=== PATIENT | male | born 1990 | race Caucasian/White ===

== ENCOUNTER 2022-02-10 17:02 | Emergency (ER) | payer OTHER, SELFPAY ==
[2022-02-10 17:13] VITALS: BP 138/76; PULSE 69; RESP 12; TEMP 37.1; O2SAT 100
--- NOTE | 2022-02-10 17:17 | ED.GENADULT ---
HPI - General Adult General Chief complaint: Extremity Injury, Lower Stated complaint: judy removed Time Seen by Provider: 02/10/22 17:17 Source: patient, RN notes reviewed and old records reviewed Mode of arrival: ambulatory Limitations: no limitations History of Present Illness HPI narrative: 31 year old male presents to express care with complaints of having injury to tissue below right knee which he had 3 judy placed in wound which got cut on a pool, reports judy placed in ER not in area. Patient reports that it is time for judy to be removed. Patient reports no noted drainage from wound area, no acute pain or any redness of wound site. MD complaint: staple removal from below right knee Related Data Home Medications Medication Instructions Recorded Confirmed No Home Medications 09/04/19 02/10/22 Allergies Allergy/AdvReac Type Severity Reaction Status Date / Time No Known Allergies Allergy Mild Verified 02/10/22 17:12 Review of Systems Review of Systems: CONSTITUTIONAL: Denies fever, chills, or sweats. EYES: Denies visual changes, redness, or discharge. ENT: Denies rhinorrhea, congestion, sore throat, or otalgia. CARDIOVASCULAR: Denies chest pain, palpitations, or edema. RESPIRATORY: Denies cough or dyspnea. GASTROINTESTINAL: Denies abdominal pain, nausea, vomiting, or diarrhea. GENITOURINARY: Denies dysuria or hematuria. SKIN: Denies rash or itching.healing wound below right knee area MUSCULOSKELETAL: Denies back pain, joint pain, or myalgia. NEUROLOGIC: Denies headache, numbness, or weakness. PSYCHIATRIC: Denies anxiety or depression. All systems reviewed & are unremarkable except as noted in HPI and below PMFSH Past Medical History Medical History No active medical problems Surgical History Surgical History History of removal of cyst right wrist Volar ganglion [address] Carlisle Family History Family History Mother Colon polyp Father Hypertension Social History Social History Smoking status: Never smoker Alcohol intake: current Drinks per week: 1 Additional living arrangements comments: and 10 mo old daughter Additional occupation/education comments: [employer] Gender identity (if verbalized by the patient): Male Comments At time of signature, agree with nursing past medical, surgical, social and family history. There is no relevant family history pertinent to the presenting complaint Exam Narrative: GENERAL: Well-appearing, well-nourished, and in no acute distress. HEAD: Normocephalic, atraumatic. EYES: PERRLA and EOMI. ENT: Nares clear, no rhinorrhea or epistaxis. Mucous membranes moist.TM's normal with good light reflex, throat pink no lesions exudates or tonsils swelling NECK: Supple. no lymphadenopathy CHEST: Clear to auscultation. No respiratory distress.[id number] % on room HEART: Regular rate and rhythm. No murmur heard. Normal peripheral pulses. ABDOMEN: Soft, nontender, nondistended, normal active bowel sounds. EXTREMITIES: Normal range of motion. No edema. SKIN: Warm, dry, no rash. wound healing to tissue below right knee which measures approximately 2cm, judy removed with no gaping of wound edges, NEURO: No focal deficits. Alert and oriented x3. Course Course Level of Care: Express Care Visit Vital Signs Vital signs: Vital Signs Temperature 37.1 C 02/10/22 17:13 Pulse Rate 69 02/10/22 17:13 Respiratory Rate 02/10/22 17:13 Blood Pressure 138/76 02/10/22 17:13 Pulse Oximetry 100 02/10/22 17:13 Oxygen Delivery Room Air 02/10/22 17:13 Temperature 37.1 C 02/10/22 17:13 Pulse Rate 69 02/10/22 17:13 Respiratory Rate 12 02/10/22 17:13 Blood Pressure 138/76 02/10/22 17:13 Pulse Oximetry 100 02/10
== END 2022-02-10 17:35 | disposition home or self-care (01) ==
PROVIDERS: Emergency Provider Registered Nurse; PCP Internal Medicine
DX: S81.011D Laceration without foreign body, right knee, subsequent encounter (principal); W45.8XXD Other foreign body or object entering through skin, subsequent encounter
CPT/HCPCS: 99211; G0463

== ENCOUNTER 2024-10-21 09:54 | Day surgery (SDC) | payer OTHER, SELFPAY ==
[2024-07-08 14:37] VITALS: BMI 22.3
[2024-10-01 12:54] VITALS: BMI 23.7
[2024-10-21 10:55] VITALS: BP 145/80; PULSE 74; RESP 12; TEMP 36.8; O2SAT 100
[2024-10-21] MEDS: LACTATED RINGERS 1,000 ML 150 ML IV CONT (11:06)
--- OUTSIDE RECORDS SUMMARY | 2024-10-21 11:50 | XMS_ITS | Clinical Summary ---
Author Organization [facility] Address [address] [place] [id number] Phone Care Team Providers Care Blackjack Pit Boss Name Role Phone Provider, None Primary Care Provider Unavailabl e Allergies No known active allergies Social History Tobacco Use Types Packs/Day Years Used Date Smoking Tobacco: Never Assessed Sex and Gender Information Value Date Recorded Sex Assigned at Not on file Legal Sex Male 1:37 AM CDT Gender Identity Not on file Sexual Orientation Not on file Last Filed Vital Signs Vital Sign Reading Time Taken Comments Blood Pressure 112/80 02/06/2022 1:45 AM CDT Pulse 72 02/06/2022 1:45 AM CDT Temperature 36.5 C (97.7 F) 02/06/2022 1:45 AM CDT Respiratory Rate 18 02/06/2022 1:45 AM CDT Oxygen Saturation 95% 02/06/2022 1:45 AM CDT Inhaled Oxygen Concentration - - Weight 72.6 kg (160 lb) 02/06/2022 1:45 AM CDT Height 175.3 cm (5' 9 ) 02/06/2022 1:45 AM CDT Body Mass Index 23.63 02/06/2022 1:45 AM CDT Plan of Treatment Not on file [facility] Care Teams Blackjack Pit Boss Relationship Specialty Start Date End Date Provider, None [place] PCP - General 02/06/22
--- OUTSIDE RECORDS SUMMARY | 2024-10-21 11:50 | XMS_ITS | Clinical Summary ---
Author Organization [facility] Address [facility] [place] [address] Care Team Providers Care Weight Analyst Name Role Phone Valentin Bautista MD Primary Care Provider [phone] Allergies No known active allergies Medications No known medications Social History Tobacco Use Types Packs/Day Years Used Date Smoking Tobacco: Never Smokeless Tobacco: Never Tobacco Cessation:Counseling Given: Not Answered Alcohol Use Standard Drinks/Week Comments Not Currently 0 (1 standard drink = 0.6 oz pur e alcohol) Sex and Gender Information Value Date Recorded Sex Assigned at Not on file Legal Sex Male 4:18 PM CDT Gender Identity Not on file Sexual Orientation Not on file Last Filed Vital Signs Vital Sign Reading Time Taken Comments Blood Pressure 127/86 04/15/2024 4:43 PM CDT Pulse 100 04/15/2024 4:43 PM CDT Temperature 36.6 C (97.8 F) 04/15/2024 4:43 PM CDT Respiratory Rate 20 04/15/2024 4:43 PM CDT Oxygen Saturation 100% 04/15/2024 4:43 PM CDT Inhaled Oxygen Concentration - - Weight 71.1 kg (156 lb 12.8 oz) 04/15/2024 4:43 PM CDT Height 180.3 cm (5' 11 ) 04/15/2024 4:43 PM CDT Body Mass Index 21.87 04/15/2024 4:43 PM CDT Plan of Treatment Health Maintenance Due Date Last Done Comments Annual Physical 1992 Hepatitis C 11/17/2007 Hepatitis B Vaccines (1 of 3 - 19+ 3-dose series) 2008 COVID-19 Vaccine (2023-2 5 season) 2024 DTaP, Tdap and Td Vaccines ( 2 - Td or Tdap) 11/05/2028 11/05/2018 HPV Vaccines Aged Out No longer eligi ble based on patient's age to complete this topic Meningococcal B Vaccine Aged Out No l onger eligible based on patient's age to complete this topic Meningococcal Vaccine Aged Out No con rosio eligible based on patient's age to complete this topic Pneumococcal Vaccine: Pediat rics (0 to 5 Years) and At-Risk Patients (6 to 64 Years) Aged Out No longer eligi ble based on patient's age to complete this topic RSV Immunizations Under 20 Months Aged Out No longer eligible based on patient's age to complete this topic Insurance [facility] Care Teams Weight Analyst Relationship Specialty Start Date End Date Valentin Bautista MD [address] [phone] PCP - General INTERNAL MEDICINE 04/15/24
--- NOTE | 2024-10-21 12:45 | WPDANESEPPF ---
Anes - Initial Pre Proc Eval Procedure: Operation Date: 10/21/24 12:00 Proposed Procedures p Diagnostic Colonoscopy - Chucho Curry MD Date/Time: 10/21/24 12:45 Surgeon: Chucho Curry MD Pre Op Diagnosis: Family History of Colon Cancer Patient Data Age: 33 Gender: M Height: 1.78 m Weight: 69.55 kg Last Vital Signs Temp 36.8 C 10/21/24 10:55 Pulse 74 10/21/24 10:55 Resp 12 10/21/24 10:55 BP 145/80 H 10/21/24 10:55 Pulse Ox 100 10/21/24 10:55 O2 Del Method Room Air 10/21/24 10:55 Allergies Allergy/AdvReac Type Severity Reaction Status Date / Time No Known Allergies Allergy Mild Verified 10/21/24 10:50 Home Medications ?Medication ?Instructions ?Recorded ?Confirmed ?Type No Home Medications 09/04/19 10/21/24 History Patient hx anesthesia problems: none Family hx anesthesia problems: none Results Review: All pre-operative results and documents have been reviewed as part of the pre-operative evaluation. FOR[facility]LY [facility], [facility] Past Medical History Medical History BMI 22.0-22.9, adult Family history of colon cancer in mother mother with cancerous polyp at age 23. Hematochezia Hemoglobin 15.9, platelets 326, PT 11.3, INR 1.1, PTT 27, iron 154 with 51% saturation and ferritin 228 on 07/05/2024. Encounter for wellness examination in adult [facility] labs on 07/05/2024. No active medical problems Surgical History Surgical History History of removal of cyst right wrist Volar ganglion [address] Carlisle Family History Family History Mother Colon polyp Father Hypertension Social History Social History Smoking status: Former smoker Tobacco type: cigarettes Alcohol intake: current Drinks per week: 1 Alcohol use details: 3-4 beers per month Substance use type: does not use Living arrangements: with family Additional living arrangements comments: and 10 mo old daughter Occupation/Education: occupation Additional occupation/education comments: [employer] Gender identity (if verbalized by the patient): Male Spiritual care concerns: No Anes - Eval Final PreProcedure Day of Procedure 10/21/24 12:45 Patient weight: normal Heart: regular rate and rhythm Lungs: clear to auscultation Airway: Mallampati scale class II Neurological: alert and oriented Last oral intake: >/= 8 hours ASA classification: II Emergent: no Anesthetic plan: proceed Anesthesia type and monitoring: general GIVS and standard monitoring Results Review: All pre-operative results and documents have been reviewed as part of the pre-operative evaluation. Informed Consent: The patient's anesthetic plan and its attendant risks and benefits were discussed with the patient/family/POA. Questions were solicited and answers provided to the satisfaction of the patient/family/POA.
--- NOTE | 2024-10-21 12:54 | PM.IMHP ---
H&P: HPI History of Present Illness Date/Time: 10/21/24 12:54 Chief Complaint: Family history colon cancer Narrative: This patient has family history of colorectal cancer. his mother had colorectal cancer at age 23. This is his 3rd colonoscopy. Review of Systems Review of Systems: All systems reviewed & are unremarkable except as noted in HPI and below PMFSH Past Medical History Medical History BMI 22.0-22.9, adult Family history of colon cancer in mother mother with cancerous polyp at age 23. Hematochezia Hemoglobin 15.9, platelets 326, PT 11.3, INR 1.1, PTT 27, iron 154 with 51% saturation and ferritin 228 on 07/05/2024. Encounter for wellness examination in adult [facility] labs on 07/05/2024. No active medical problems Surgical History Surgical History History of removal of cyst right wrist Volar ganglion [address] Carlisle Family History Family History Mother Colon polyp Father Hypertension Social History Social History Smoking status: Former smoker Tobacco type: cigarettes Alcohol intake: current Drinks per week: 1 Alcohol use details: 3-4 beers per month Substance use type: does not use Living arrangements: with family Additional living arrangements comments: and 10 mo old daughter Occupation/Education: occupation Additional occupation/education comments: [employer] Gender identity (if verbalized by the patient): Male Spiritual care concerns: No Meds Home Medications and Allergies Home Medications ?Medication ?Instructions ?Recorded ?Confirmed ?Type No Home Medications 09/04/19 10/21/24 History Allergies Allergy/AdvReac Type Severity Reaction Status Date / Time No Known Allergies Allergy Mild Verified 10/21/24 10:50 Vital Signs Vital Signs - 24 hr 10/21/24 10:55 Temperature 98.3 F Pulse Rate 74 Respiratory Rate 12 Blood Pressure 145/80 H Pulse Oximetry 100 Oxygen Delivery Room Air Exam Const: General: cooperative and healthy appearing Resp: Effort & Inspection: normal respiratory effort and able to speak in complete sentences Auscultation: clear to auscultation bilaterally Cardio: Rate: regular rate Rhythm: regular rhythm GI: Inspection: normal to inspection GI Palp: No No hepatosplenomegaly present Auscultation: normal bowel sounds Rectal Exam: deferred Skin: General skin exam: normal color Psych: Appearance: grossly normal Mental Status: mental status grossly normal Assessment and Plan Assessment and plan (1) Family history of colon cancer in mother: Code(s): Z80.0 - Family history of malignant neoplasm of digestive organs Status: Acute Assessment and Plan: The patient is deemed a good candidate for the procedure. Consent signed. Will proceed.
[2024-10-21] MEDS: SIMETHICONE ORAL SUSPENSION 20 MG/0.3 ML 30 ML BOTTLE 0.6 ML IRRIGATION (13:03)
[2024-10-21 13:14] VITALS: BP 101/66; PULSE 70; RESP 16; O2SAT 99
--- NOTE | 2024-10-21 13:21 | WPDANESPN ---
Anes - Prog Note Post-Op Date/Time: 10/21/24 13:21 Cardiovascular status: normal Respiratory status: normal Airway patency: baseline Mental status: baseline Post-Op hydration status: normal Vital Signs: Last Vital Signs Temp 36.8 C 10/21/24 10:55 Pulse 74 10/21/24 10:55 Resp 12 10/21/24 10:55 BP 145/80 H 10/21/24 10:55 Pulse Ox 100 10/21/24 10:55 O2 Del Method Room Air 10/21/24 10:55 Pain Score (VAS): 0 I/O: Intake & Output 10/20/24 10/21/24 10/21/24 23:59 07:59 15:59 Intake Total 800 Balance 800 Patient Feedback: Patient satisfied with anesthetic care.
[2024-10-21 13:24] VITALS: BP 106/76; PULSE 67; RESP 16; O2SAT 100
[2024-10-21 13:34] VITALS: BP 120/82; PULSE 64; RESP 17; O2SAT 100
== END 2024-10-21 13:46 | disposition home or self-care (01) ==
PROVIDERS: PCP Family Medicine; Visit Provider Internal Medicine Gastroenterology
PROC: 0DJD8ZZ Inspection of Lower Intestinal Tract, Via Natural or Artificial Opening Endoscopic (ICD-10-PCS; CPT 45378; principal; 2024-10-21 12:00)
DX: Z12.11 Encounter for screening for malignant neoplasm of colon (principal); K64.8 Other hemorrhoids; Z80.0 Family history of malignant neoplasm of digestive organs
CPT/HCPCS: 45378